=== PATIENT | male | born 1990 | race Caucasian/White ===

== ENCOUNTER 2022-04-15 17:38 | Emergency (ER) | payer SELFPAY ==
[2022-04-15 17:47] VITALS: BP 149/95; PULSE 87; RESP 16; TEMP 37; O2SAT 96; BMI 25.0
[2022-04-15 17:53] VITALS: BP 149/95; PULSE 89; TEMP 37; O2SAT 95
--- NOTE | 2022-04-15 17:53 | XRR_ITS ---
PROCEDURE INFORMATION: Exam: XR Left Shoulder Exam date and time: 04/15/2022 6:05 PM Age: 31 years old Clinical indication: Injury or trauma; Other: Lifting injury this am; Blunt trauma (contusions or hematomas); Shoulder; Left; Additional info: Left shoulder injury TECHNIQUE: Imaging protocol: Radiologic exam of the left shoulder. Views: 2 or more views. COMPARISON: No relevant prior studies available. FINDINGS: Bones/joints: The glenohumeral joint is intact. The acromioclavicular joint is intact. No acute fracture or other acute osseous abnormality. Soft tissues: The soft tissues are unremarkable as demonstrated. XR/XR shoulder LT min 2V* [id number] IMPRESSION: Unremarkable left shoulder radiographic series.
--- NOTE | 2022-04-15 18:12 | ED_ITS ---
HPI - Extremity Problem General: Chief complaint: Extremity Injury, Upper Stated complaint: left shoulder pain Time Seen by Provider: 04/15/22 17:53 History of Present Illness: Patient is a 31-year-old male comes to the ED with left shoulder pain. Injury occurred just prior to arrival. He was loading some núñez panels and he felt a pop in his left shoulder. He rates his pain currently a 9 out of 10 when moving arms, but at rest his pain is 0. Abduction of arm causes worsening pain. He endorses having some pain in the left shoulder for approximately a month before injury. Associated symptoms: Deny chest pain, fever(s) or rash Review of Systems Const: Denies: fever(s), chills or fatigue Eyes: Denies: change in vision or eye discomfort ENMT: Denies: throat pain, odynophagia, nasal discharge or nasal congestion Card: Denies: chest pain, palpitations, edema, swelling of feet/ankles, dyspnea on exertion or orthopnea Resp: Denies: dyspnea, productive cough or non-productive cough GI: Denies: abdominal pain, nausea, vomiting, diarrhea, constipation or hematochezia : Denies: flank pain, difficulty urinating, dysuria or hematuria Musc: Reports: extremity pain (Left shoulder) and limited range of motion (Due to pain); Denies: neck pain, back pain or extremity swelling Skin/Breast: Denies: rash or new lesions Neuro: Denies: headache(s), numbness in extremities or weakness in extremities PFS ED PFSH: Medical History No pertinent family history Surgical History No pertinent past surgical history Physical Exam Const: COMMON NORMALS: patient oriented x3 and alert GENERAL APPEARANCE: cooperative and comfortable HENMT: COMMON NORMALS: normocephalic HEAD & SCALP: normocephalic MOUTH: Normal oral and palatal mucosa present THROAT: posterior oropharynx normal and uvula midline Neck/C-Spine: COMMON NORMALS: supple GENERAL: Yes normal visual inspection Resp: COMMON NORMALS: normal respiratory effort, No retractions, No use of accessory muscles and clear to auscultation bilaterally AUSCULTATION: clear to auscultation bilaterally Cardio: COMMON NORMALS: regular rate, regular rhythm, S1 normal heart sound present, S2 normal heart sound present, No gallops present (Cardio), No clicks present (Cardio), No murmurs present (Cardio) and Peripheral pulses 2+ throughout RATE: regular rate RHYTHM: regular rhythm HEART SOUNDS: S1 normal heart sound present and S2 normal heart sound present PERIPHERAL PULSES: Peripheral pulses 2+ throughout GI: COMMON NORMALS: Normal to inspection, nondistended, normoactive bowel sounds present, Soft to palpation, non-tender and no masses PALPATION: Yes Soft to palpation : COMMON NORMALS: Yes no CVA tenderness BLADDER/KIDNEY EXAM: Yes no CVA tenderness Back/Pelvis: COMMON NORMALS: no CVA tenderness Extremity: COMMON NORMALS: normal to inspection NARRATIVE EXTREMITY EXAM: Left shoulder?tenderness around AC joint and anterior aspect of shoulder. Limited range of motion?abduction of arm due to pain. Neurovascular intact distally. Neuro: COMMON NORMALS: patient oriented x3 SENSORIUM/ORIENTATION: Yes alert GAIT: Yes Normal gait present Skin: GENERAL SKIN EXAM: dry skin Course Vital Signs: Vital signs: Vital Signs Temperature 98.6 F 04/15/22 17:53 Pulse Rate 89 04/15/22 17:53 Respiratory Rate 16 04/15/22 17:47 Blood Pressure 149/95 04/15/22 17:53 Pulse Oximetry 95 04/15/22 17:53 Oxygen Delivery Me thod 04/15/22 17:53 MDM - Extremity (Nontraumatic) Medical Decision Making Patient is a 31-year-old male comes to the ED with left shoulder pain. Injury occurred just prior to arrival. He was loading some núñez panels and he felt a pop in his left shoulder. He rates his pain currently a 9 out of 10 when moving arms, but at rest his pain is 0. Abduction of arm causes worsening pain. Vitals are stable. Left shoulder?tenderness around AC joint and anterior aspect of shoulder. Limited range of motion?abduction of arm due to pain. Neurovas cular intact distally. X-ray of left shoulder shows no acute findings. Patient diagnosed with sprain of left shoulder and was put in a shoulder sling. I placed an order with case management for patient be referred to Ortho for follow-up and further evaluation of shoulder pain. Return ED precautions given. Patient understood and agreed with plan. Lab Data Radiology Impressions Shoulder X-Ray 02/26/23 17:53 IMPRESSION: Unremarkable left shoulder radiographic series. Discharge Plan Discharge Patient Disposition: Home Clinical Impression: Sprain of left shoulder Qualifiers: Encounter type: initial encounter Shoulder sprain type: unspecified sprain Qualified Code(s): S43.402A - Unspecified sprain of left shoulder joint, initial encounter Condition: Stable Discharge Orders: Discharge ED (Routine); Ordered 04/15/22 Ordered By: Efrain Carter Discharge Diet: Regular Discharge Activity: Increase activity as tolerated Patient Instructions: Shoulder Sprain (ED), Shoulder Pain (ED) Activity Restrictions/Additional Instructions: Follow-up with medical provider as directed. Case management should contact you in the next several days set up an appoint with Ortho for follow-up. Apply cold pack for approximately 10 to 15 minutes multiple times a day on left shoulder and limit lifting for the next 3 to 5 days to allow for healing. Make sure to do some range of motion exercises daily for left shoulder to prevent frozen shoulder. Take [id number] ibuprofen and Tylenol to help with pain. Return to the ER or your medical provider if condition worsens. Please read and understand discharge instructions. Thank you for choosing [facility] for your healthcare needs today. Please realize this is an emergency room and that we are providing you with a medical screening exam and this may not be complete and all inclusive of all the testing and or work up that you may need to determine your ailment or severity of your illness. It is very important that you follow up as instructed or that you return to the Emergency Department should you have concerns or if your condition changes or worsens in any way. Coding Level of Care Code ED Hospital Attendant for Kelsey Crooks
--- NOTE | 2022-04-16 13:05 | DCPLANNER ---
Addendum entered by Nadia Ryan 04/27/22 07:30: on site property manager received the following message from the front office staff at ortho regarding appointment: attempt made to contact patient - number states wireless caller is not available at this time - no vm option. mailed letter to contact our clinic to schedule w/ Dr. Carter Original Note: on site property manager had message to schedule a follow up appointment for patient with ortho. on site property manager sent patients information to the front office staff at ortho. Patients information will be printed and reviewed. Clinic will call patient with appointment information.
== END 2022-04-15 18:39 | disposition home or self-care (01) ==
PROVIDERS: Emergency Provider Physician Assistant
DX: S43.402A Unspecified sprain of left shoulder joint, initial encounter (principal); X50.0XXA Overexertion from strenuous movement or load, initial encounter
CPT/HCPCS: 73030; 99283; E0114

== ENCOUNTER 2023-06-06 13:21 | Emergency (ER) | payer SELFPAY ==
[2023-06-06 13:25] VITALS: BP 158/97; PULSE 90; RESP 16; TEMP 36.6; O2SAT 97
--- NOTE | 2023-06-06 13:54 | XR_ITS ---
WS: [id number] Exam: XR lumbar spine 2-3V* [id number] Date/Time of Exam: 06/06/2023 1:54 PM Reason For Exam: injury Findings: In the AP projection, the lumbar spine is straight. The sacroiliac joints are open. The facet struc tures are bilaterally symmetrical. In the lateral projection, the lumbar curve is well maintained. The intervertebral disc spaces are intact. No fractures or anomalies of the lumbar spine are noted. IMPRESSION: Negative lumbar spine.
[2023-06-06] MEDS: HYDROcodone-acetaminophen 5-325 mg Tablet 1 TAB PO (14:42)
[2023-06-06] MEDS: cyclobenzaprine 10 mg Tablet PO (14:42)
[2023-06-06] MEDS: dexamethasone 10 mg/mL INJ IM (14:43)
[2023-06-06] MEDS: ketorolac 60 mg/2 mL INJ IM (14:44)
--- NOTE | 2023-06-06 14:48 | ED_ITS ---
HPI - Back Pain/Injury General: Chief Complaint: Back Pain/Injury Stated Complaint: lower back pains, hip pain Time Seen by Provider: 06/06/23 14:27 Source: patient Mode of arrival: ambulatory Limitations: no limitations History of Present Illness: 32-year-old male states that on Saturday morning his get out of bed he twisted and felt a twinge in his righ lower back. He states he had back issues before and on since Saturday has had worsening righ lower back pain. He states pain sharp in nature and he is radiation down his right leg. States pain is currently an 8 out of 10 is worse with movement and walking improved with rest denies any bowel or bladder incontinence. Associated symptoms: Deny abdominal pain, chills, fever(s), nausea or vomiting Review of Systems Const: Denies: fever(s), chills, body aches or change in appetite ENMT: Denies: throat pain or dental pain Card: Denies: chest pain Resp: Denies: dyspnea GI: Denies: abdominal pain, nausea, vomiting or diarrhea Musc: Reports: back pain; Denies: neck pain Skin/Breast: Denies: rash Neuro: Denies: headache(s) PFS ED PFSH: Medical History No pertinent family history Surgical History No pertinent past surgical history Physical Exam Const: COMMON NORMALS: no acute distress, patient oriented x3 and healthy appearing HENMT: COMMON NORMALS: normocephalic and atraumatic HEAD & SCALP: normocephalic and atraumatic Neck/C-Spine: COMMON NORMALS: full ROM and supple Chest: COMMONS NORMALS: normal inspection of the chest Resp: COMMON NORMALS: normal respiratory effort Back/Pelvis: OTHER: Tenderness to the left lower back no saddle anesthesia Extremity: COMMON NORMALS: normal to inspection and full ROM Neuro: COMMON NORMALS: patient oriented x3, moves all extremities and no focal motor deficits Psych: COMMON NORMALS: mental status grossly normal, Normal thought process pr esent and cooperative THOUGHT PROCESS: Normal thought process present Skin: COMMON NORMALS: no rashes or lesions noted and no wounds GENERAL SKIN EXAM: no rashes or lesions noted Course Vital Signs: Vital signs: Vital Signs Temperature 97.9 F 06/06/23 13:25 Pulse Rate 90 06/06/23 13:25 Respiratory Rate 16 06/06/23 13:25 Blood Pressure 158/97 06/06/23 13:25 Pulse Oximetry 97 06/06/23 13:25 Oxygen Delivery Me thod Room Air 06/06/23 13:25 MDM - Back Pain/Injury Medical Decision Making Patient presents here with low back pain with likely sciatica he feels improved here did give him Decadron Toradol and Flexeril will prescribe him Naprosyn and Flexeril for home we will get him follow-up with back surgeon he is return if worsening he has no saddle anesthesia no signs of cauda equina. Medical Records I reviewed the patient's medical records. All radiology interpretation(s) finalized by discharge Discharge Plan Discharge Patient Disposition: Home Clinical Impression: Back pain Qualifiers: Back pain location: low back pain Chronicity: acute Back pain laterality: right Sciatica presence: with sciatica Sciatica laterality: sciatica of right side Qualified Code(s): M54.41 - Lumbago with sciatica, right side Condition: Stable Prescriptions: New Naprosyn 500 mg tablet 500 mg PO BID PRN (Reason: pain) Qty: 20 0RF cyclobenzaprine 10 mg tablet 10 mg PO BID PRN (Reason: muscle spasm) Qty: 20 0RF No Action ibuprofen 200 mg Capsule 800 mg PO Q6H PRN (Reason: Pain) acetaminophen 325 mg Capsule 1,300 mg PO QID PRN (Reason: Pain) Discharge Orders: Discharge ED (Routine); Ordered 06/06/23 Ordered By: Suni Fung Referrals: Davin Puente DO [Physician] - 1-3 days Discharge Diet: Advance as tolerated Discharge Activity: Resume usual activity Patient Instructions: Back Pain (ED) Stand Alone Forms: Work/School Release Coding Level of Care Code ED Organ Teacher for Kelsey Crooks
--- NOTE | 2023-06-06 21:25 | DCPLANNER ---
Message sent to Ortho spine
== END 2023-06-06 15:33 | disposition home or self-care (01) ==
PROVIDERS: Emergency Provider Emergency Medicine
DX: M54.41 Lumbago with sciatica, right side (principal)
CPT/HCPCS: 72100; 96372; 99284; J1100; J1885

== ENCOUNTER → 2023-06-18 14:59 | Outpatient (BNVA) | payer BC, SELFPAY | PROVIDERS: Visit Provider Orthopaedic Surgery | DX: M54.50 Low back pain, unspecified (principal) | CPT/HCPCS: 72110 ==

== ENCOUNTER 2023-08-06 10:00 | Outpatient (CLI) | payer OTHER, SELFPAY ==
--- NOTE | 2023-08-06 10:15 | MR_ITS ---
WS: [id number] MRI LUMBAR SPINE NONCONTRAST TECHNIQUE: Sagittal T1, T2 and STIR imaging. Axial T1 and T2 imaging. CLINICAL INFORMATION: pain COMPARISON: None. FINDINGS: Mild lumbar curve. No acute compression. LEFT paracentral disc extrusion L5-S1 with cephalad migratio n of disc material posterior to the L5 vertebral body. L1-L2: Mild facet arthropathy. Spinal canal and foramen are patent. L2-L3: No significant disc bulging. Mild facet arthropathy. Spinal canal and foramen are patent. L3-L4: No significant disc bulging. Mild facet arthropathy. Spinal canal and foramen are patent. L4-L5: Mild annular bulging. Shallow central protrusion with a small annular tear. Slight impingement traversing L5 nerve roots bilaterally. Mild facet arthropathy. Foramen are patent. L5-S1: Central and LEFT paracentral disc extrusion with cephalad migration of disc material eccentric to the LEFT subarticular recess. Disc material impinges the traversing LEFT S1 and proximal exiting LEFT L5 nerve roots. Mild central canal stenosis. Mild proximal LEFT foraminal narrowing. RIGHT santos en is patent. Mild facet arthropathy. Visualized pelvic bony structures: Normal. Paravertebral soft tissues: Normal. MR/MR lumbar spine wo con* [id number] IMPRESSION: 1. Mild lumbar curve. No acute compression. 2. Central LEFT paracentral disc extrusion L5-S1 with cephalad migration of di sc material in the subarticular recess posterior to the L5 vertebral body. 3. L5-S1 disc extrusion impinges the traversing LEFT S1 and proximal exiting L EFT L5 nerve roots. Mild central canal stenosis. 4. Shallow central protrusion L4-5 with a small annular tear and slight imping ement on traversing LEFT greater than RIGHT L5 nerve roots. 5. Mild facet arthropathy L4-L5 and L5-S1. 6. Hazy increased T2 signal in the cervical spine at the C2 level on the battery builder imaging may be due to motion artifact. If clinical concern this could be furth er evaluated with cervical spine MRI. No prior cervical spine comparisons.
== END 2023-08-06 10:01 | disposition home or self-care (01) ==
LOC: RAD 10:00
PROVIDERS: Visit Provider Orthopaedic Surgery
DX: M51.26 Other intervertebral disc displacement, lumbar region (principal); M51.27 Other intervertebral disc displacement, lumbosacral region; M51.06 Intervertebral disc disorders with myelopathy, lumbar region
CPT/HCPCS: 72148